=== PATIENT | male | born 1960 | race Caucasian/White ===

== ENCOUNTER 2016-07-17 23:30 | Emergency (ER) | payer SELFPAY ==
--- NOTE | ~2016-07-17 | CT71 ---
[facility] A Service [facility] RADIOLOGY TEXT RESULTS PATIENT: SYLVIA KELLOGG LOCATION: SED : 58 UNIT #: [id number] AGE: [address]: Catalina Esteban MD SEX: M ORDER DR: [id number] [place] [id number] E MR#: [id number] Acc #: [id number] NAME: SYLVIA KELLOGG : 1960 SEX: M STUDY DATE/TIME: 07/18/2016 0:38 UNIT: SED ROOM: STUDY DESCRIPTION: CT Head Wo Contrast Attending Physician: Catalina Esteban M.D. Ordering Physician: Physician Non-Staff MEDICAL IMAGING REPORT This report is preliminary unless electronic signature is present. EXAM CT head, noncontrast, 07/18/2016 HISTORY 56-year-old male in the ED after head injury. He fell on stairs, striking his head. Facial abrasions/laceration. Neck pain. Ethanol intoxication is reported. TECHNIQUE CT examination of the head was performed without IV contrast. This CT exam was performed with one or more of the following radiation dose reduction techniques: automatic exposure control, adjustment of mA and/or kV according to patient size, and iterative reconstruction. FINDINGS No acute intracranial abnormality is demonstrated. No visible skull fracture. Mild generalized cerebral cortical atrophy. Mild diffuse low-attenuation white matter changes in the periventricular regions, nonspecific but likely related to chronic small vessel disease. No evidence of intracranial hemorrhage, mass, mass effect, cerebral edema or hydrocephalus. No comparison studies here. IMPRESSION 1. No acute intracranial abnormality. No visible skull fracture. 2. Mild diffuse chronic changes as noted above. 1. Dictated by... Pelon Ray M.D. [facility] A Service [facility] RADIOLOGY TEXT RESULTS PATIENT: SYLVIA KELLOGG LOCATION: SED : 58 UNIT #: [id number] AGE: [address]: Catalina Esteban MD SEX: M ORDER DR: THIS IS AN ELECTRONICALLY VERIFIED REPORT Pelon Ray M.D. at 07/18/2016 9:42 PM Jamal TD: 07/18/2016 12:11 JOB #: [id number] MEDICAL IMAGING REPORT Page 1 of 1
--- NOTE | ~2016-07-17 | CT52 ---
[facility] A Service [facility] RADIOLOGY TEXT RESULTS PATIENT: SYLVIA KELLOGG LOCATION: SED : 58 UNIT #: [id number] AGE: [address]: Catalina Esteban MD SEX: M ORDER DR: [id number] [place] [id number] E MR#: [id number] Acc #: [id number] NAME: SYLVIA KELLOGG : 1960 SEX: M STUDY DATE/TIME: 07/18/2016 0:41 UNIT: SED ROOM: STUDY DESCRIPTION: CT Cervical Spine Wo Cont Attending Physician: Catalina Esteban M.D. Ordering Physician: Physician Non-Staff MEDICAL IMAGING REPORT This report is preliminary unless electronic signature is present. EXAM CT cervical spine, 07/18/2016 HISTORY 56-year-old male in the ED with neck pain and facial abrasions after injury. Fell on stairs tonight prior to arrival. Ethanol intoxication is reported. TECHNIQUE Thin-section axial CT images were obtained from the skull base through the mid portion of T2. Sagittal and coronal images were reconstructed. This CT exam was performed with one or more of the following radiation dose reduction techniques: automatic exposure control, adjustment of mA and/or kV according to patient size, and iterative reconstruction. FINDINGS No fracture or other acute osseous abnormality is demonstrated. Severe degenerative disc space narrowing and degenerative endplate changes throughout the entire cervical spine, greatest from C2 through C6. [id number] multilevel degenerative facet arthropathy throughout the cervical spine. Cervical vertebral alignment is normal. IMPRESSION 1. No fracture or other acute osseous abnormality. 2. Severe degenerative disc disease throughout the entire cervical spine and mild to moderate bilateral multilevel degenerative facet arthropathy. Cervical vertebral alignment is normal. Dictated by... [facility] A [facility] RADIOLOGY TEXT RESULTS PATIENT: SYLVIA KELLOGG LOCATION: SED : 58 UNIT #: [id number] AGE: [address]: Catalina Esteban MD SEX: M ORDER DR: Pelon Ray M.D. THIS IS AN ELECTRONICALLY VERIFIED REPORT Pelon Ray M.D. at 07/19/2016 10:05 PM BENNETT/juanita TD: 07/18/2016 12:15 JOB #: [id number] MEDICAL IMAGING REPORT Page 1 of 1
[2016-07-17] MEDS ORDERED: NO MEDICATIONS (23:50)
== END 2016-07-18 04:12 | disposition home or self-care (01) ==
LOC: SED 23:30
DX: S01.111A Laceration without foreign body of right eyelid and periocular area, initial encounter (principal); F10.129 Alcohol abuse with intoxication, unspecified; F17.200 Nicotine dependence, unspecified, uncomplicated; W18.09XA Striking against other object with subsequent fall, initial encounter; Y92.009 Unspecified place in unspecified non-institutional (private) residence as the place of occurrence of the external cause
CPT/HCPCS: 12011; 70450; 72125; 99284